=== PATIENT | male | born 1980 | race Caucasian/White ===

== ENCOUNTER 2021-04-09 10:17 | Emergency (ER) | payer BC, SELFPAY ==
[2021-04-09 10:28] VITALS: BP 122/70; PULSE 82; RESP 16; TEMP 35.6; O2SAT 99
--- NOTE | 2021-04-09 10:37 | ED.URI ---
HPI - URI/Sore Throat General Chief Complaint: Upper Respiratory Infection Stated Complaint: Sore Throat Time Seen by Provider: 04/09/21 10:37 Source: patient and RN notes reviewed Mode of arrival: ambulatory Limitations: no limitations History of Present Illness HPI Narrative: 40-year-old male presents to the [facility] with complaints of a sore throat since yesterday. States that he took some allergy medication but his throat still was painful. Able to eat and drink. Denies fevers, nausea, vomiting. Review reports bilateral ear pain and a headache as well. Denies any significant past medical history. Reports back surgery Related Data Allergies Allergy/AdvReac Type Severity Reaction Status Date / Time Sulfa (Sulfonamide Allergy Unknown Hives Verified 04/09/21 10:32 Antibiotics) Review of Systems Review of Systems: All systems reviewed & are unremarkable except as noted in HPI and below Constitutional: Constitutional: Reports no additional constitutional complaints, Denies chills and Denies fever(s) Eyes: Eyes: Reports no additional eye complaints ENT: Reports as per HPI and Reports sore throat Comments: Bilateral ear pain Cardiovascular: Cardiovascular: Reports no additional cardiovascular complaints and Denies chest pain Respiratory: Respiratory: Reports no additional respiratory complaints, Denies cough and Denies dyspnea Gastrointestinal: Gastrointestinal: Reports no additional gastrointestinal complaints Musculoskeletal: Musculoskeletal: Reports no additional musculoskeletal complaints Integumentary/Breasts: Skin/Breast: Reports system reviewed and no additional complaints, except as docu Neurologic: Reports as per HPI and Reports headache(s) Psychiatric: Psychiatric: Reports no additional psychiatric complaints Allergic/Immunologic: Allergic/Immunologic: Reports no additional allergic/immunologic complaints [facility] Surgical History Surgical History (Updated 04/09/21 @ 10:42 by Evelyne Love) Previous back surgery Family History Family History Father Family history of diabetes mellitus in first degree relative Social History Social History Smoking status: Never smoker Comments At the time of my signature, I reviewed and agree with the nursing past medical, surgical, social, and family history. There is no relevant family history pertinent to the patient complaint. Exam Const: General: no acute distress and alert Nutritional Appearance: well nourished Orientation/consciousness: patient oriented x3 Limitations: no limitations HENMT: Head: normal to inspection Ears: hearing grossly normal bilaterally, external ears normal, TM's normal bilaterally and EAC's normal General nose exam: Normal external nose present, Normal nares present and Normal nasal mucous membranes and turbinates present Face and sinus: normal facial exam Mouth: Yes Normal oral and palatal mucosa present, Yes lip normal, Yes tongue normal and No drooling Throat: uvula midline, abnormal tonsil bilateral erythema and hypertrophy and uvular edema (Swollen, erythema) Eyes: Pupils: Equal, round and reactive pupils present Neck: Neck: normal visual inspection and lymphadenopathy bilateral submandibular soft, mobile and tender Chest: Chest palpation & inspection: normal inspection of the chest Resp: Effort & Inspection: normal respiratory effort and no use of accessory muscles Auscultation: clear to auscultation bilaterally Cardio: Rate: regular rate Rhythm: regular rhythm Back/Spine/Pelvis: Back: no CVA tenderness Skin: General skin exam: normal color Rashes: no rashes Neuro: General: patient oriented x3, moves all extremities, no meningeal signs and no focal motor deficits Speech: normal speech Gait exam (Neuro): Normal gait present Extrem: General: normal to inspection and no pedal edema Psych: Appearance: grossl
== END 2021-04-09 11:14 | disposition home or self-care (01) ==
PROVIDERS: Emergency Provider Nurse Practitioner
DX: K12.2 Cellulitis and abscess of mouth (principal)
CPT/HCPCS: 87081; 87880; 99213; G0463

== ENCOUNTER 2022-04-18 13:17 | Emergency (ER) | payer OTHER, SELFPAY ==
[2022-04-18 13:31] VITALS: BP 131/78; PULSE 77; RESP 18; TEMP 36.5; O2SAT 99
--- NOTE | 2022-04-18 17:12 | ED.SKABFB ---
HPI - Skin/Abscess/Foreign Bdy General Chief complaint: Skin/Abscess/Foreign Body <FIDELINA Keane Last Filed: 04/18/22 18:23> Stated complaint: abcess on buttocks <FIDELINA Keane Last Filed: 04/18/22 18:23> Time Seen by Provider: 04/18/22 16:54 <FIDELINA Keane Last Filed: 04/18/22 18:23> History of Present Illness HPI narrative: Patient is a 41-year-old male here for evaluation of rectal pain for the past 2 days and an episode of rectal bleeding about 3 days ago. The pain is present with straining for bowel movements and with sitting. He looked at his rectum and noticed that he had a spot that he thought was a hemorrhoid. Patient online and read that he should come in and get it removed. He has attempted soaking in a warm bath without relief. His bowel movements have been normal, does note 1 episode of rectal bleeding about 3 days ago but has had none since. No fevers, chills, abdominal pain. <FIDELINA Keane Last Filed: 04/18/22 18:23> Related Data Allergies/Adverse reactions: Allergies Allergy/AdvReac Type Severity Reaction Status Date / Time Sulfa (Sulfonamide Allergy Unknown Hives Verified 04/18/22 17:23 Antibiotics) <FIDELINA Keane Last Filed: 04/18/22 18:23> Review of Systems Review of Systems: Gen.: Denies fevers or chills Eyes: Denies eye pain or visual change ENT: Denies congestion Respiratory: Denies shortness of breath or cough CV: Denies chest pain or palpitations GI: Denies abdominal pain nausea, emesis or diarrhea reports rectal pain. Denies burning, urgency, frequency or hematuria Musculoskeletal: Denies back pain or muscle pain Neuro: Denies numbness, tingling, weakness or focal weakness Skin: Denies rash Except as documented, all other systems reviewed and negative <FIDELINA Keane Last Filed: 04/18/22 18:23> [facility] Surgical History Surgical History: Surgical History (Updated 04/09/21 @ 10:42 by Evelyne Love APRN) Previous back surgery <Joan Conde PA-C - Last Filed: 04/18/22 18:23> Family History Family History: Family History Father Family history of diabetes mellitus in first degree relative <Joan Conde PA-C - Last Filed: 04/18/22 18:23> Social History Social History: Social History Smoking status: Never smoker <Joan Conde PA-C - Last Filed: 04/18/22 18:23> Exam Narrative: APPEARANCE: No acute distress, nontoxic, resting in bed EYES: EOMI HEENT: Normocephalic, atraumatic, OMM RESPIRATORY: No respiratory distress Clear to auscultation bilaterally with no rhonchi wheezing or rales. CARDIOVASCULAR: Regular rate and rhythm without murmurs rubs or gallops. ABDOMINAL: Soft, nontender, nondistended, no rebound or guarding MUSCULOSKELETAL: Moves all extremities. No clubbing, cyanosis or edema. : Patient has a 4 mm external thrombosed hemorrhoid at the 3 o'clock position. No rectal pain with digital exam. NEURO: Awake and alert. Following commands, speech normal, no focal deficits SKIN:: Warm, dry. No rashes lesions or abrasions PSYCHIATRIC: Normal affect/mood, <Joan Conde PA-C - Last Filed: 04/18/22 18:23> Course [employer]GEANT/PA Physician Supervision For this patient encounter, I reviewed the [employer] SERGEANT or PA documentation, treatment plan, and medical decision making <Fly Dubois MD - Last Filed: 04/19/22 11:59> Vital Signs Vital signs: Vital Signs Temperature 97.7 F 04/18/22 13:31 Pulse Rate 77 04/18/22 13:31 Respiratory Rate 18 04/18/22 13:31 Blood Pressure 131/78 04/18/22 13:31 Pulse Oximetry 99 04/18/22 13:31 Oxygen Delivery Room Air 04/18/22 13:31 Temperature 97.7 F 04/18/22 13:31 Pulse Rate 90 04/18/22 17:23 Respiratory Rate 19 04/18/22 17:23 Rosalia
[2022-04-18 17:23] VITALS: BP 121/76; PULSE 90; RESP 19; O2SAT 90
== END 2022-04-18 17:30 | disposition home or self-care (01) ==
LOC: ANHED 17:22
PROVIDERS: Emergency Provider Emergency Medicine
DX: K64.4 Residual hemorrhoidal skin tags (principal)
CPT/HCPCS: 99283

== ENCOUNTER 2022-09-20 17:57 | Emergency (ER) | payer OTHER, SELFPAY ==
--- NOTE | ~2022-09-20 | XR_ITS ---
EXAMINATION: XR chest 2V DATE: 09/20/2022 19:34 INDICATION: Cough and weakness. TECHNIQUE: Frontal and lateral views of the chest were obtained on 3 radiographs. COMPARISON: None. FINDINGS: There is no pneumonia, pleural effusion, or pneumothorax. The heart size is normal. IMPRESSION: 1. No acute cardiopulmonary disease. Reviewed, dictated and finalized at location A. [facility] TECH
[2022-09-20 18:07] VITALS: BP 142/81; PULSE 95; RESP 18; TEMP 36.3; O2SAT 98
--- NOTE | 2022-09-20 18:11 | ECG_ITS ---
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
[2022-09-20 18:56] LABS: Basophils Percent Auto 0.6 % (0.2-1.2); Eosinophils Percent Auto 0.3 % (0-4.4); Hematocrit 43.6 % (42.0-52.0); Hemoglobin 14.8 g/dL (14.0-18.0); Immature Granulocyte Absolute 0.01 K/mm3 (0.00-0.031); Immature Granulocyte Percent A 0.3 % (0-0.5); Lymphocytes Absolute Auto 1.46 K/mm3 (0.9-3.2); Lymphocytes Percent Auto 40.8 % (18.3-44.2); Mean Corpuscular HGB Conc 33.9 g/dl (32-36); Mean Corpuscular Hemoglobin 29.4 pg (26-34); Mean Corpuscular Volume 86.5 fl (80-100); Mean Platelet Volume 9.4 fl (7.4-10.4); Monocytes Absolute Auto 0.4 K/mm3 (0.1-0.6); Monocytes Percent Auto 12.3 % (2.6-8.5); Neutrophils Absolute Auto 1.6 K/mm3 (1.3-6.7); Neutrophils Percent Auto 45.7 % (45.5-73.1); Platelet Count Result 225 k/mm3 (150-375); Red Blood Count 5.04 M/mm3 (4.6-6.20); Red Cell Distribution Width 11.9 % (11.5-14.5); White Blood Count 3.6 K/mm3 (4.5-10.0)
[2022-09-20 19:13] LABS: Alanine Aminotransferase 40 U/L (6-50); Albumin Level 4.1 g/dL (3.5-5.1); Alkaline Phosphatase 79 U/L (38-126); Anion Gap 8 mmol/L (8-16); Aspartate Amino Transferase 27 U/L (17-59); Bilirubin,Total 0.4 mg/dL (0.2-1.3); Blood Urea Nitrogen 8 mg/dL (9-20); Calcium 8.4 mg/dL (8.4-10.2); Carbon Dioxide 27 mmol/L (22-30); Chloride 104 mmol/L (98-107); Estimated CRCL calculation 129 ml/min; Estimated Glomerular Filt Rate > 60; Glucose 126 mg/dL (65-110); Potassium 3.8 mmol/L (3.4-5.0); Sodium 139 mmol/L (137-145)
[2022-09-20 19:33] VITALS: BP 154/88; PULSE 87
[2022-09-20 19:38] VITALS: BP 131/89; PULSE 89; RESP 20; O2SAT 100
[2022-09-20 19:40] VITALS: BP 126/71; PULSE 88
[2022-09-20 20:02] LABS: Troponin I < 0.012 ng/mL (0.000-0.034)
--- NOTE | 2022-09-20 20:24 | ED.DIZZY ---
HPI - Dizziness General Chief Complaint: Dizziness Stated Complaint: +COVID TEST FEELS WEAK Time Seen by Provider: 09/20/22 18:51 History of Present Illness HPI Narrative: 42-year-old male presented to the emergency room for evaluation of dizziness and lightheadedness for 2 hours prior to arrival. Patient states that he tested positive for COVID 3 days ago. Also reports palpitations and generalized weakness. States he been feeling fine during his first 3 days of being positive for COVID. Related Data Allergies Allergy/AdvReac Type Severity Reaction Status Date / Time Sulfa (Sulfonamide Allergy Unknown Hives Verified 04/18/22 17:23 Antibiotics) Review of Systems Review of Systems: CONSTITUTIONAL: Denies fever, chills, or sweats. EYES: Denies visual changes, redness, or discharge. ENT: Denies rhinorrhea, congestion, sore throat, or otalgia. CARDIOVASCULAR: Reports palpitations RESPIRATORY: Denies cough or dyspnea. GASTROINTESTINAL: Denies abdominal pain, nausea, vomiting, or diarrhea. GENITOURINARY: Denies dysuria or hematuria. SKIN: Denies rash or itching. MUSCULOSKELETAL: Denies back pain, joint pain, or myalgia. NEUROLOGIC: Denies headache, numbness, dizziness, or weakness. PSYCHIATRIC: Denies anxiety or depression. [facility] Surgical History Surgical History Previous back surgery Family History Family History Father Family history of diabetes mellitus in first degree relative Social History Social History Smoking status: Never smoker Exam Narrative: GENERAL: Well-appearing, well-nourished, no physical limitations, and in no acute distress. HEAD: Normocephalic, atraumatic. EYES: Conjunctivae normal, PERRLA and EOMI. CHEST: Clear to auscultation. No respiratory distress. No wheezes rales or rhonchi. HEART: Regular rate and rhythm. No murmur heard. Normal peripheral pulses. ABDOMEN: Soft, nontender, nondistended, normal active bowel sounds. EXTREMITIES: Normal range of motion. No edema. No clubbing or cyanosis SKIN: Warm, dry, no rash. No noted wounds NEURO: No focal deficits. Alert and oriented x3. MAEW. CN's II-XI intact bilaterally, normal gait PSYCH: Cooperative. Normal mood and affect. Course Vital Signs Vital signs: Vital Signs Temperature 36.3 C L 09/20/22 18:07 Pulse Rate 95 09/20/22 18:07 Respiratory Rate 18 09/20/22 18:07 Blood Pressure 142/81 H 09/20/22 18:07 Pulse Oximetry 98 09/20/22 18:07 Oxygen Delivery Room Air 09/20/22 18:07 Temperature 36.3 C L 09/20/22 18:07 Pulse Rate 88 09/20/22 19:40 Respiratory Rate 20 09/20/22 19:38 Blood Pressure 126/71 09/20/22 19:40 Pulse Oximetry 100 09/20/22 19:38 Oxygen Delivery Room Air 09/20/22 18:07 MDM - Dizziness Lab Data 09/20/22 18:50 09/20/22 18:50 Labs: Lab Results 09/20/22 09/20/22 09/20/22 Range/Units 18:49 18:50 18:50 WBC 3.6 L (4.5-10.0) K/mm3 RBC 5.04 (4.6-6.20) M/mm3 Hgb 14.8 (14.0-18.0) g/dL Hct 43.6 (42.0-52.0) % MCV 86.5 (80-100) fl MCH 29.4 (26-34) pg MCHC 33.9 (32-36) g/dl RDW 11.9 (11.5-14.5) % Plt Count 225 (150-375) k/mm3 MPV 9.4 (7.4-10.4) fl Immature Gran % (Auto) 0.3 (0-0.5) % Neut % (Auto) 45.7 (45.5-73.1) % Lymph % (Auto) 40.8 (18.3-44.2) % [place] % (Auto) 12.3 H (2.6-8.5) % Eos % (Auto) 0.3 (0-4.4) % Baso % (Auto) 0.6 (0.2-1.2) % Lymph # (Auto) 1.46 (0.9-3.2) K/mm3 Randolph # (Auto) 0.4 (0.1-0.6) K/mm3 Eos # (Auto) 0.0 (0-0.3) K/mm3 Baso # (Auto) 0.0 (0.0-0.1) K/mm3 Abs Immat Gran (auto) 0.01 (0.00-0.031) K/mm3 Absolute Neuts (auto) 1.6 (1.3-6.7) K/mm3 Absolute Nucleated RBC 0.0 (0.0-0.012) K/mm3 Nucleated RBC % 0.0 (0.0-0.2) % Sodium 139 (137-145) mmol/L
[2022-09-20 20:39] VITALS: BP 123/75; PULSE 75; RESP 16; O2SAT 100
[2022-09-20 20:42] VITALS: BP 110/79; PULSE 76; RESP 18; O2SAT 99
== END 2022-09-20 20:44 | disposition home or self-care (01) ==
PROVIDERS: Emergency Medicine; Emergency Provider Nurse Practitioner Family
DX: U07.1 COVID-19 (principal); R42 Dizziness and giddiness
CPT/HCPCS: 36415; 71046; 80053; 84484; 85025; 93005; 99284

== ENCOUNTER 2023-06-14 14:46 | Emergency (ER) | payer OTHER, SELFPAY ==
[2023-06-14 14:58] VITALS: BP 135/70; PULSE 96; RESP 16; TEMP 36.8; O2SAT 100
--- NOTE | 2023-06-14 15:09 | ED.URI ---
HPI - URI/Sore Throat General Chief Complaint: Upper Respiratory Infection Stated Complaint: cough Time Seen by Provider: 06/14/23 15:01 Source: patient and RN notes reviewed Mode of arrival: ambulatory Limitations: no limitations History of Present Illness HPI Narrative: Patient presents today with a 3 day history of headache, productive cough, nasal congestion, subjective fever. Denies shortness of breath. States was sick with similar symptoms last week. Currently rates his pain 2/10 and has tried no medication for symptoms prior to arrival. Denies history of asthma or COPD. He is a nonsmoker. He took a home COVID test yesterday that was negative. Patient states his primary reason for coming in today was a work excuse. Related Data Home Medications Medication Instructions Recorded Confirmed No Home Medications 06/14/23 06/14/23 Allergies Allergy/AdvReac Type Severity Reaction Status Date / Time Sulfa (Sulfonamide Allergy Unknown Hives Verified 06/14/23 14:56 Antibiotics) Review of Systems Review of Systems: CONSTITUTIONAL: Denies body aches, chills, or sweats.+ subjective fever EYES: Denies visual changes, redness, or discharge. ENT: Denies rhinorrhea, sore throat, or otalgia.+ congestion CARDIOVASCULAR: Denies chest pain, palpitations, or edema. RESPIRATORY: Denies dyspnea.+ cough GASTROINTESTINAL: Denies abdominal pain, nausea, vomiting, or diarrhea. GENITOURINARY: Denies dysuria or hematuria. SKIN: Denies rash, itching, or wounds. MUSCULOSKELETAL: Denies back pain, joint pain, or myalgia. NEUROLOGIC: Denies numbness, tingling, or weakness.+ headache PSYCH: Denies depression or anxiety. [facility] Surgical History Surgical History Previous back surgery Family History Family History Father Family history of diabetes mellitus in first degree relative Social History Social History Smoking status: Never smoker Comments At time of signature, I have reviewed and agree with nursing past medical, surgical, social and family history unless otherwise noted. Please see nursing chart for further information. There is no relevant family history pertinent to the presenting complaint Exam Narrative: GENERAL: Well-appearing, well-nourished, and in no acute distress. HEAD: Normocephalic, atraumatic. EYES: EOMI. No redness or drainage. Conjunctivae normal. ENT: Mucous membranes pink and moist. Nares clear. No rhinorrhea. TMs normal bilaterally. Throat normal. Uvula midline. NECK: Normal AROM. Supple. No lymphadenopathy. CHEST: No respiratory distress. Clear to auscultation. HEART: Regular rate and rhythm. No murmur appreciated. Normal peripheral pulses. EXTREMITIES: Normal range of motion. No edema. SKIN: Warm, dry, no rash. Capillary refill normal. Normal skin turgor. NEURO: No focal deficits. Alert and oriented x3. Gait steady. PSYCH: Normal affect. No signs of depression or anxiety. Course Course Level of Care: Express Care Visit Vital Signs Vital signs: Vital Signs Temperature 98.2 F 06/14/23 14:58 Pulse Rate 96 06/14/23 14:58 Respiratory Rate 16 06/14/23 14:58 Blood Pressure 135/70 06/14/23 14:58 Pulse Oximetry 100 06/14/23 14:58 Oxygen Delivery Room Air 06/14/23 14:58 Temperature 98.2 F 06/14/23 14:58 Pulse Rate 96 06/14/23 14:58 Respiratory Rate 16 06/14/23 14:58 Blood Pressure 135/70 06/14/23 14:58 Pulse Oximetry 100 06/14/23 14:58 Oxygen Delivery Room Air 06/14/23 14:58 Reviewed. Pt has been instructed to follow up with his PCP regarding his elevated blood pressure today. MDM - URI/Sore Throat MDM Narrative Medical decision making narrative: Symptoms likely viral in etiology. No testing indicated at this time. Anticipatory guidance
== END 2023-06-14 15:15 | disposition home or self-care (01) ==
PROVIDERS: Emergency Provider Nurse Practitioner
DX: J06.9 Acute upper respiratory infection, unspecified (principal)
CPT/HCPCS: 99211; G0463